=== PATIENT | female | born 1990 | race Caucasian/White ===

== ENCOUNTER 2016-12-23 08:57 | Emergency (ER) | payer MEDICAID, SELFPAY ==
[2016-12-23 08:58] VITALS: BMI 19.2
[2016-12-23 08:59] VITALS: BP 109/61; PULSE 55; RESP 19; TEMP 98.4; O2SAT 100
[2016-12-23] MEDS ORDERED: Sodium Chloride 0.9% 1,000 ML IV STA (09:22)
--- NOTE | 2016-12-23 09:25 | ED PDOC ---
Syncope/Near Syncope/Dizziness Time Seen by Provider: 12/23/16 09:11 Chief Complaint (Nursing): Syncope Chief Complaint (Provider): Syncope History Per: Patient History/Exam Limitations: no limitations Onset/Duration Of Symptoms: Mins (prior to arrival) Current Symptoms Are (Timing): Gone Now Additional Complaint(s): Candida Blanco is a 26 year old female with a previous medical history of kidney stones, who presents to the emergency department with a complaint of dizziness associated with nausea and sensation of room spins while walking down the stairs of the [facility]. Patient reports falling down the stairs 3 steps after symptom onset but being caught by a bystander. At the moment, she denies any headaches, dizziness, vomiting, abdominal pain, paresthetic sensation or weakness. She states that she had two prior episodes last week that lasted no more than 10 seconds each. PMD: none provided Past Medical History Reviewed: Historical Data, Nursing Documentation, Vital Signs Vital Signs: Last Vital Signs Temp 98.4 F 12/23/16 08:59 Pulse 55 L 12/23/16 08:59 Resp 19 12/23/16 08:59 BP 109/61 12/23/16 08:59 Pulse Ox 100 12/23/16 08:59 - Medical History PMH: Kidney Stones Denies: Chronic Kidney Disease - Surgical History Surgical History: Cholecystectomy, (x1) - Family History Family History: States: Unknown Family Hx - Social History Current smoker - smoking cessation education provided: No Alcohol: None Drugs: Denies - Home Medications Home Medications: Ambulatory Orders Medication Instructions Recorded Ursodiol [Actigall] 300 mg PO BID #0 cap 05/04/15 Ondansetron ODT [Zofran ODT] 4 mg PO Q8 PRN #12 odt 11/16/15 Doxylamine/Pyridoxine HCl (B6) 1 each PO QPM PRN #15 tablet. 12/23/16 [Eileen Xie 10-10 mg Tablet] Vit Calc,Iron,Folic 1 each PO DAILY #30 tablet 12/23/16 [ Vitamins] - Allergies Allergies/Adverse Reactions: Allergies Allergy/AdvReac Type Severity Reaction Status Date / Time No Known Allergies Allergy Verified 04/29/15 02:14 Review of Systems ROS Statement: Except As Marked, All Systems Reviewed And Found Negative Constitutional: Negative for: Fever, Chills, Weakness Cardiovascular: Positive for: Light Headedness Gastrointestinal: Positive for: Nausea. Negative for: Abdominal Pain Neurological: Positive for: Dizziness (dizziness associated with room spinning sensation). Negative for: Weakness (No paresthetic sensation), Headache Physical Exam - Reviewed Nursing Documentation Reviewed: Yes Vital Signs Reviewed: Yes - Physical Exam Appears: Positive for: Well, Non-toxic, No Acute Distress Head Exam: Positive for: ATRAUMATIC, NORMAL INSPECTION, NORMOCEPHALIC Skin: Positive for: Normal Color, Warm, Dry Eye Exam: Positive for: Normal appearance, EOMI, PERRL. Negative for: Nystagmus ENT: Positive for: Normal ENT Inspection Neck: Positive for: Normal, Painless ROM, Supple Cardiovascular/Chest: Positive for: Regular Rate, Rhythm Respiratory: Positive for: Normal Breath Sounds Gastrointestinal/Abdominal: Positive for: Normal Exam, Bowel Sounds, Soft. Negative for: Tenderness Back: Positive for: Normal Inspection Extremity: Positive for: Normal ROM Neurologic/Psych: Positive for: Alert, plastic press molder II-XII (intact), Oriented, Cerebellar Tests (good ). Negative for: Motor/Sensory Deficits - Laboratory Results Result Diagrams: 12/23/16 09:30 12/23/16 09:30 - ECG O2 Sat by Pulse Oximetry: 100 (RA) Pulse Ox Interpretation: Normal Medical Decision Making Medical Decision Making: Time: 9:21 Initial Impression: Vertigo Initial Plan: * CT Head w/o contrast * EKG * Labs * HCG Qualitative serum * Urine dipstick * Urine * Antivert 50mg PO * Normal saline 1,000 ml IV per 1,000 mls/hr * Zofran 4mg IV * Orthostatic BP * Urinalysis * Re-evaluation Time: 9:30 Urine sample confirmed that patient is . Orders of CT Head and Antivert are cancelled. Time: 9:44 Patient denies any dysuria, abdominal pain, or vaginal bleeding. LMP: 11/28/16 G2, P1 Scribe Attestation: Documented by Brianna Dunn, acting as a scribe for Ama Macedo MD. Provider Scribe Attestation: All medical record entries made by the Scribe were at my direction and personally dictated by me. I have reviewed the chart and agree that the record accurately reflects my personal performance of the history, physical exam, medical decision making, and the department course for this patient. I have also personally directed, reviewed, and agree with the discharge instructions and disposition. Disposition - Clinical Impression Clinical Impression: - Patient ED Disposition Is Patient to be Admitted: No - Disposition [facility] Disposition: Routine/Home Disposition Time: 12:35 Condition: IMPROVED Prescriptions: Doxylamine/Pyridoxine HCl (B6) [Eileen Xie 10-10 mg Tablet] 1 each PO QPM PRN # 15 tablet. PRN Reason: Nausea/Vomiting Vit Calc,Iron,Folic [ Vitamins] 1 each PO DAILY #30 tablet Instructions: (ED) Print Language: LATVIAN
[2016-12-23 09:47] LABS: BASO % 0.6 % (0.0-2.0); EOS # 0.1 K/uL (0.0-0.7); EOS % 1.8 % (0.0-4.0); HEMATOCRIT 37.3 % (34.0-47.0); LYMPH # 1.8 K/uL (1.0-4.3); LYMPH % 27.2 % (20.0-40.0); MEAN CORPUSCULAR HEMOGLOBIN 28.4 pg (27.0-31.0); MEAN CORPUSCULAR HGB CONC 32.7 g/dL (33.0-37.0); MEAN PLATELET VOLUME 8.3 fl (7.2-11.7); MONO # 0.3 K/uL (0.0-0.8); MONO % 5.1 % (0.0-10.0); NEUT # 4.3 K/uL (1.8-7.0); NEUT % 65.3 % (50.0-75.0); RED CELL DISTRIBUTION WIDTH 13.2 % (11.5-14.5); WHITE BLOOD COUNT 6.6 K/uL (4.8-10.8)
[2016-12-23 09:57] LABS: RBC URINE 4 /hpf (0-3); URINE BACTERIA OCC (<OCC); URINE BILIRUBIN NEGATIVE (NEGATIVE); URINE BLOOD NEGATIVE (NEGATIVE); URINE COLOR YELLOW (YELLOW); URINE GLUCOSE (UA) NEG (Normal); URINE KETONE NEGATIVE (NEGATIVE); URINE LEUKOCYTE ESTERASE NEG Leu/uL (Negative); URINE PROTEIN 100 mg/dL (NEGATIVE); URINE UROBILINOGEN 0.2-1.0 mg/dL (0.2-1.0); WBC URINE 1 /hpf (0-5)
[2016-12-23 10:18] LABS: ALB/GLOB RATIO 1.3 (1.0-2.1); ALKALINE PHOSPHATASE 50 U/L (38-126); ALT/SGPT 40 U/L (9-52); AST/SGOT 29 U/L (14-36); BILIRUBIN,TOTAL 0.3 mg/dl (0.2-1.3); BLOOD UREA NITROGEN 11 mg/dl (7-17); CALCIUM 8.8 mg/dL (8.4-10.2); CARBON DIOXIDE 22 mmol/L (22-30); CHLORIDE 104 mmol/L (98-107); GFR AFRICAN-AMERICAN > 60; GLUCOSE,RANDOM 90 mg/dL (65-105); POTASSIUM 3.9 MMOL/L (3.6-5.0); SODIUM 136 mmol/l (132-148); TOTAL PROTEIN 7.1 G/DL (6.3-8.2)
--- NOTE | 2016-12-23 12:03 | CARD ---
APPROVED REPORT EKG Measurement Heart [id number] <Conclusion> Sinus bradycardia Nonspecific T wave abnormality Abnormal ECG
--- NOTE | 2016-12-23 12:43 | US ---
PROCEDURE: OB Pelvic Ultrasound HISTORY: Nausea, dizziness COMPARISON: None available. FINDINGS: UTERUS: Gestational sac: Single intrauterine gestation. Heart rate: 146 bpm. age (Ultrasound estimated): 7 weeks 1 day +/- 0 weeks 4 days Lore-gestational hemorrhage: None. Date of delivery (Ultrasound estimated) : 08/10/2017 Uterus measures 11.8 x 4.5 x 6.7 cm. Normal in size and appearance. CERVIX: Long and closed. No cervical abnormality seen. RIGHT OVARY: Measures 2.6 x 1.3 x 2.2 cm. No mass lesion. Normal flow. LEFT OVARY: Measures 2.3 x 1.4 x 2.1 cm. No solid mass. Normal flow. FREE FLUID: None. OTHER FINDINGS: None. IMPRESSION: Single intrauterine live with ultrasound estimated gestational age of 7 weeks 1 day +/- 0 weeks 4 days. Estimated date of delivery by ultrasound is 08/10/2017.
== END 2016-12-23 13:41 | disposition home or self-care (01) ==
LOC: SUPCPDRO 08:57 → H.ER 08:57
DX: R42 Dizziness and giddiness (principal); Z33.1 Pregnant state, incidental

== ENCOUNTER 2017-08-03 07:44 | Inpatient (IN) | payer MEDICAID, SELFPAY ==
[2017-08-03 07:44] VITALS: BMI 28.2
[2017-08-03] MEDS ORDERED: Lactated Ringer's 1,000 ML IV SCH (07:45)
[2017-08-03] MEDS ORDERED: ceFAZolin 1 GM in Sodium Chloride 0.9% 100 ML IVPB ONE ×2 (07:46→09:00)
[2017-08-03] MEDS: Lactated Ringer's 1,000 ML IV SCH ×2 (08:00→09:00)
[2017-08-03] MEDS ORDERED: Oxytocin 30 UNITS in Sodium Chloride 0.9% 500 ML IM ONE ×2 (08:15→11:15)
[2017-08-03 08:23] LABS: BASO % 0.6 % (0.0-2.0); EOS % 0.6 % (0.0-4.0); HEMOGLOBIN 10.8 g/dL (12.0-16.0); LYMPH # 1.8 K/uL (1.0-4.3); LYMPH % 22.9 % (20.0-40.0); MEAN CELL VOLUME 84.7 fl (81.0-99.0); MEAN CORPUSCULAR HEMOGLOBIN 28.3 pg (27.0-31.0); MEAN CORPUSCULAR HGB CONC 33.5 g/dL (33.0-37.0); MONO # 0.4 K/uL (0.0-0.8); MONO % 4.8 % (0.0-10.0); NEUT # 5.7 K/uL (1.8-7.0); NEUT % 71.1 % (50.0-75.0); NRBC % 0.1 % (0.0-0.0); RBC 3.81 Mil/uL (3.80-5.20); RED CELL DISTRIBUTION WIDTH 15.7 % (11.5-14.5)
[2017-08-03] MEDS ORDERED: Morphine 1 mg/ml preservative-free Inj(Duramorph) ONE (09:18)
[2017-08-03] MEDS ORDERED: ePHEDrine 50 mg/ml Inj ONE (09:18)
[2017-08-03] MEDS ORDERED: Phenylephrine 10 mg/ml Inj ONE (09:19)
[2017-08-03] MEDS ORDERED: Cellulose Hemostat 2X3 Sheet ONE (10:25)
[2017-08-03] MEDS ORDERED: DiphenhydrAMINE 50 mg/ml Inj IVP PRN (10:45)
[2017-08-03] MEDS ORDERED: DiphenhydrAMINE 50 mg/ml Inj ONE (10:50)
[2017-08-03] MEDS ORDERED: Oxytocin 30 UNITS in Sodium Chloride 0.9% 500 ML IV ONE (11:30)
[2017-08-03] MEDS: Simethicone 80 mg Chewtab PO SCH (22:30)
[2017-08-04] MEDS: Simethicone 80 mg Chewtab PO SCH ×4 (05:00→21:42)
[2017-08-04 06:37] LABS: HEMOGLOBIN 9.6 g/dL (12.0-16.0); MEAN CORPUSCULAR HGB CONC 32.9 g/dL (33.0-37.0); RBC 3.42 Mil/uL (3.80-5.20); RED CELL DISTRIBUTION WIDTH 16.3 % (11.5-14.5); WHITE BLOOD COUNT 9.8 K/uL (4.8-10.8)
[2017-08-04] MEDS: Oxycodone/Acetaminophen 5/325 mg Tab PO PRN ×2 (08:12→15:55)
--- NOTE | 2017-08-04 09:01 | OBADHP ---
Datetime: 08/03/2017 08:05 Admit Comment, IP Provider: 26yo ega 39.0 confirmed with US on 12/23/2016 presents for repeat c /s. Pt reports feeling comfortable: +: movement denies: contractions, vb/lof/cp/sob/n/v/dysuria pnc: Dr. 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 case dw Dr. Benny claire md [email or web address] Pelvic Type - PN: Adequate Extremities - PN: Normal Abdomen - PN: Normal Back - PN: Normal Breast - PN: Normal Lungs - PN: Not Done Heart - PN: Normal Thyroid - PN: Not Done Neurologic - PN: Normal HEENT - PN: Normal General - PN: Normal FHR - Baseline A Provider: 130 Vital Signs Provider: Reviewed; Within Normal Limits IP Chief Complaint: Scheduled Section NICHD Variability Prov Fetus A: Moderate 6-25bpm NICHD Accel Fetus A IP Provider: [id number] FHR Category Provider Fetus A: Category I NICHD Decel Fetus A IP Provider: None Genitourinary Exam: Normal DTRs - PN: Not Done EGA AdmitDate IP: 39.0 IP Adm Impression: Term, intrauterine IP Admit Plan: Admit to unit; Initiate Section protocol
--- NOTE | 2017-08-04 09:10 | OBDS ---
DELIVERY PERSONNEL Delivery Doctor: Rober Zapata MD Scrub Nurse: Amanda Haddad Gluer And Slicer Hand: Margareth Osuna RN Anesthesiologist: Constance Regalado MD Resident: Dr. Martínez MATERNAL INFORMATION Delivery Anesthesia: Spinal Medications in Delivery: surgicel, Pitocin 30 units Estimated Blood Loss (ml): 800 Placenta Cultured: No Maternal Complications: None RN Comments: see provider notes Provider Comments: Refer to dictation. LABOR SUMMARY EDC: 08/10/2017 00:00 No. Babies in Womb: 1 Attempted: No Labor Anesthesia: None LABOR INFORMATION Reason for Induction: Not Applicable Oxytocin: N/A Group B Beta Strep: Negative Steroids Given: None Reason Steroids Not Administered: Not Applicable MEMBRANES Membranes Rupture Method: Artificial Rupture of Membranes: 08/03/2017 10:10 Length of Rupture (hrs): 0.02 Amniotic Fluid Color: Clear Amniotic Fluid Amount: Moderate Amniotic Fluid Odor: Normal STAGES OF LABOR Stage 3 hrs: 0 Stage 3 min: 1 CSECTION DELIVERY Primary Indication: Repeat Elective CSection Urgency: Elective CSection Incidence: Repeat Labor: No Labor Elective: Elective CSection Incision: Lower Uterine Transverse BABY A INFORMATION Infant Delivery Date/Time: 08/03/2017 10:11 Method of Delivery: Born in Route : No : N/A Forceps: N/A Vacuum Extraction: N/A Shoulder Dystocia : No SHOULDER DYSTOCIA BABY A Delivery Date/Time: 08/03/2017 10:11 PRESENTATION/POSITION BABY A Presentation: Cephalic Cephalic Presentation: Vertex Breech Presentation: N/A PLACENTA INFORMATION BABY A Placenta Delivery Time : 08/03/2017 10:12 Placenta Method of Delivery: Manual Removal Placenta Status: Delivered SCORES BABY A Heart Rate 1 min: >100 bpm Resp Effort 1 min: Good Cry Reflex Irritability 1 min: Cough or Sneeze or Pulls Away Muscle Tone 1 min: Active Motion Color 1 min: Blue/Pale Resuscitation Effort 1 min: Tactile Stimulation; Oxygen SCORE 1 MIN: 8 Heart Rate 5 min: >100 bpm Resp Effort 5 min: Good Cry Reflex Irritability 5 min: Cough or Sneeze or Pulls Away Muscle Tone 5 min: Active Motion Color 5 min: Body [place], Extremities Blue Resuscitation Effort 5 min: Tactile Stimulation; Oxygen SCORE 5 MIN: 9 INFANT INFORMATION BABY A Gestational Age at Delivery: 39.0 Gestational Status: Term Outcome : Liveborn Condition : Stable Sex: Male IDENTIFICATION/MEDS BABY A ID Band Number: [id number] ID Band Location: Left Leg; Left Arm Vitamin K Given : Not Given Erythromycin Given: Not Given WEIGHT/LENGTH BABY A Infant Birthweight (gms): 3740 Infant Weight (lb): 8 Weight (oz): 4 CORD INFORMATION BABY A No. Cord Vessels: 3 Nuchal Cord : N/A Cord Blood Taken: No Suction: None ASSESSMENT BABY A Infant Complications: None Physical Findings at Delivery: Within Normal Limits Infant Respirations: Grunting Computer Systems Security Administrator/ALS Called : No Infant Care By: Dr. Chavez Transferred To: Nursery
--- NOTE | 2017-08-04 10:10 | OBPPN ---
Datetime: 08/04/2017 06:10 PP Pain Prov: Within normal limits PP Nausea Prov: Denies PP Flatus Prov: Yes PP BM Prov: No PP Breasts Prov: Not Done PP Heart Prov: Normal PP Lungs Prov: Normal PP Abdomen/Uterus Prov: Normal PP Lochia Prov: Normal PP Vulva/Perineum Prov: Not Done PP CVA Tenderness Prov: Not Done PP Extremities Prov: Normal PP C/S Incision Prov: Normal PP Impression Prov: Normal progression PP Plan Prov: Continue present management PP Progress Note Prov: 26 yo s/p . Pt. is seen and examined at bedside this morning . No overnight events. Pt reports mild abdominal pain, but well controlled with pain meds. Robins to b e d/c. Dressing to be removed. Advised to advance diet as tolerated. Pumping w/o difficulty. Lochia i s similar to menses volume. No BM but passing gas per rectum. Denies fever/chills, diarrhea, nausea/v omiting, chest pain, dyspnea, and dizziness. VS: stable Gen: NAD Cardio: s1s2, no m/r/g Resp: clear breath sounds b/l Abdomen: BS+, tenderness to palpation. Dressing clean, intact. Uterus is firm and at the level of the umbilicus. Ext: No edema, calves nontender Neuro/Psych: AAOx3, no grossly focal deficit, preserved affect and mood. A/P: 26 yo s/p . Pt remains afebrile, tolerating pain with medication, doing well on POD 1. OOB with caution SCDs for DVT prophylaxis, encouraged ambulating Percocet 5/325mg and Ibuprofen 600mg for pain. Colace 100mg PO BID for constipation Encourage . PP CBC: pending. Tdap before d/c Anticipated d/c: 08/06/17 YBecerra PGY Addendum by Dr. Salgado: Patient evaluated independently and I agree with the above. Patient is POD #1, continue orders, patient doing well IP PP Procedures: None Vital Signs Provider PP: Reviewed; Within Normal Limits
--- NOTE | 2017-08-04 15:31 | OP ---
PROCEDURE DATE: 08/03/2017 PREOPERATIVE DIAGNOSIS: Elective repeat section at 39 weeks' gestational age. POSTOPERATIVE DIAGNOSIS: Elective repeat section at 39 weeks' gestational age. OPERATION PERFORMED: Repeat low-flap transverse section via Pfannenstiel incision. OPERATIVE FINDINGS: Viable infant with Apgars of 9 and 9 at 1 and 5 minutes respectively. Normal uterus, normal tubes and ovaries bilaterally. Moderate amount of abdominal pelvic adhesions. SURGEON: Kin Zapata MD. TYPE OF ANESTHESIA: Spinal. ANESTHESIOLOGIST: Mika Regalado MD. ESTIMATED BLOOD LOSS: 800 mL. FLUIDS: 1100 mL Lactated Ringer's. URINE OUTPUT: 200 mL of clear urine at the end of procedure. COMPLICATIONS: None. DESCRIPTION OF PROCEDURE: The patient was taken to the operating room where spinal anesthesia was found to be adequate. The patient was prepped and draped in a normal sterile fashion in the dorsal supine position with a leftward tilt. A Pfannenstiel skin incision was made with a scalpel. This was carried down through to the underlying layer of fascia with the scalpel. Midline defect was made in the fascial layer with a scalpel. The fascial incision was then extended bilaterally sharply with curved Quiroz scissors. The fascial layer was from the underlying rectus muscles both bluntly and sharply with curved Quiroz scissors. The rectus muscles were at the midline. The peritoneum was then identified, tented up with the Lana clamps x2, entered sharply with Metzenbaum scissors. This peritoneal incision was then extended superiorly and inferiorly with good visualization of the urinary bladder. Bladder blade was inserted in the abdomen. The vesicouterine peritoneum was then identified, tented up with Lana clamps x2, entered sharply with Metzenbaum scissors. This peritoneal incision was then extended superiorly and inferiorly with good visualization of the urinary bladder. The bladder flap was created digitally. The Marcela retractors were placed over the urinary bladder. The uterus was incised with a scalpel. The uterine incision was extended bilaterally bluntly. The infant's head was delivered atraumatically. Nose and mouth were suctioned with bulb suction. The remainder of the was delivered without complication. The cord was clamped and cut. The was handed off to waiting pediatricians. The cord blood was collected. The placenta was removed manually. The uterus was cleared of all clots and debris. The uterine incision was repaired with 0 Vicryl in a running, locked fashion. A second layer of the same suture was used to imbricate the first and to obtain excellent hemostasis. Reinspection of the uterine incision proved excellent hemostasis. The abdomen and pelvis were irrigated with copious amounts of warm normal saline. Reinspection of the uterine incision proved hemostasis. All instruments were removed from the patient. The peritoneal layer was closed with a running stitch of 2-0 chromic. The rectus muscles were reapproximated in the midline with a running stitch of 2-0 chromic. The fascial layer was closed with a running stitch of 0 Vicryl. Subcutaneous tissue was closed with a running stitch of 3-0 plain. The skin was closed with a subcutaneous stitch of 3-0 Vicryl. The patient tolerated the procedure well. All sponge count, lap count and needle counts were correct x2. The patient was given 2 g of Ancef just prior to the beginning of the procedure. The patient tolerated the procedure well. There were no complications. The patient was taken to the recovery room awake and in stable condition. Kin Zapata MD
[2017-08-05] MEDS: Oxycodone/Acetaminophen 5/325 mg Tab PO PRN (02:27)
--- NOTE | 2017-08-05 12:21 | OBPPN ---
Datetime: 08/05/2017 06:24 PP Pain Prov: Within normal limits PP Nausea Prov: Denies PP Flatus Prov: Yes PP BM Prov: No PP Breasts Prov: Not Done PP Heart Prov: Normal PP Lungs Prov: Normal PP Abdomen/Uterus Prov: Normal PP Lochia Prov: Normal PP Vulva/Perineum Prov: Not Done PP CVA Tenderness Prov: Not Done PP Extremities Prov: Normal PP C/S Incision Prov: Normal PP Progress Prov: Normal PP Comments Phys Exam Prov: Pfannenstiel incision: Clean dry and intact no exudate no erythema no in duration PP Impression Prov: Normal progression PP Plan Prov: Continue present management PP Progress Note Prov: 26 yo s/p . Pt. is seen and examined at bedside this morning . No overnight events. Pt reports mild abdominal pain, but well controlled with pain meds. Robins d/c. Dressing removed. Tolerating PO diet well. Pumping w/o difficulty. Lochia is similar to menses volum e. No BM but passing gas per rectum. Denies fever/chills, diarrhea, nausea/vomiting, chest pain, dysp kate, and dizziness. VS: stable Cardio: s1s2, no m/r/g Resp: clear breath sounds b/l Abdomen: BS+, tenderness to palpation. Incision looks clean, intact no erythema, no exudates or de hiscence. Uterus is firm and at the level of the umbilicus. Ext: No edema, calves nontender A/P: 26 yo s/p . Pt remains afebrile, tolerating pain with medication, doing well on POD 2. OOB with caution SCDs for DVT prophylaxis, encouraged ambulating Percocet 5/325mg and Ibuprofen 600mg for pain. Colace 100mg PO BID for constipation Iron 325mg PO daily for anemia. Encourage . PP CBC: 9.6/29.0 Tdap before d/c Anticipated d/c: 08/06/17 YBecerra PGY1 OB attending addendum: Patient seen and examined by me. Patient states she had a bowel movement this morning. She complai ns of intermittent dizziness associated with getting out of bed and ambulation. No other complaints O: 08/04 hemoglobin 9.6 Afebrile but afebrile vital signs stable Impression postop day #2. Hemoglobin 9.6 and intermittent lightheadedness plan ECC Wounds care and hygiene reviewed with patient IP PP Procedures: None Vital Signs Provider PP: Reviewed; Within Normal Limits
[2017-08-05 12:32] LABS: HEMOGLOBIN 8.7 g/dL (12.0-16.0); MEAN CELL VOLUME 87.4 fl (81.0-99.0); MEAN CORPUSCULAR HEMOGLOBIN 28.4 pg (27.0-31.0); MEAN CORPUSCULAR HGB CONC 32.5 g/dL (33.0-37.0); RBC 3.07 Mil/uL (3.80-5.20); RED CELL DISTRIBUTION WIDTH 15.9 % (11.5-14.5); WHITE BLOOD COUNT 10.6 K/uL (4.8-10.8)
[2017-08-05] MEDS: Simethicone 80 mg Chewtab PO SCH ×3 (13:24→22:00)
[2017-08-06] MEDS: Simethicone 80 mg Chewtab PO SCH ×4 (04:00→10:12)
[2017-08-06] MEDS ORDERED: Oxytocin 30 UNITS in Sodium Chloride 0.9% 500 ML IV ONE (08:08)
--- NOTE | 2017-08-06 11:06 | OBDCSUM ---
Datetime: 08/06/2017 08:36 Discharged to, Provider: Home Follow up at, Provider: [facility] Disch Instr Activity: Normal activity Disch Instr Diet: Regular Discharge Instructions, Provider: Routine instructions given Discharge Diagnosis, Provider: Term Delivered Discharge Time: 08/06/2017 11:00 Follow up in weeks, Provider: Wound check Appt given to patient, F/U PP and NB appt Disch Referrals: None Contraception discussed, Prov: Yes Disch Activity Restrictions: No sexual activity; Nothing in vagina - [place], tampons, douche Discharge Comment, Provider: POD#3 26 yo s/p . Patient is seen and examined this morning, ambulating in hallway w/o any difficulty. Patient admits mild to moderate pain but well controlled on medication. Patient is br eastfeeding. denies any issue with PO intake, voiding or BM. Had a BM today as per patient. Lochia is similar to menses volume. Denies fever/chills, diarrhea, nausea/vomiting, chest pain, dyspnea, or di zziness. Baby is doing well as per patient VS: stable Cardio: s1s2, no m/r/g Resp: clear breath sounds b/l Abdomen: BS+, tenderness to palpation. Incision looks clean, intact no erythema, no exudates or de hiscence. Uterus is firm and at the level of the umbilicus. Ext: No edema, calves nontender A/P: 26 yo s/p . Pt remains afebrile, tolerating pain with medication, doing well on POD 3 -Encourage ambulating and breast feeding -Percocet 5/325mg, and Ibuprofen 600mg for pain, Rx given -Iron for anemia, Rx given -Nothing per Vagina, no heavy lifting, avoid stairs for few days -If excessive bleeding or fever without relief from Tylenol go to ED -Follow up at [facility] with in one week -Follow up wound check, Appt given and follow up for PP visit in 4 to 6 weeks -Discharge home Case discussed with Dr. Richard --- Bev Ramos, PGY-1
--- NOTE | 2017-08-06 11:06 | OBPPN ---
Datetime: 08/06/2017 11:04 PP Pain Prov: Within normal limits PP Nausea Prov: Denies PP Flatus Prov: Yes PP Breasts Prov: Normal PP Heart Prov: Normal PP Lungs Prov: Normal PP Abdomen/Uterus Prov: Normal PP Lochia Prov: Normal PP Vulva/Perineum Prov: Normal PP CVA Tenderness Prov: Normal PP Extremities Prov: Normal PP Comments Phys Exam Prov: Fundus firm under umbilicus Incision clean/dry/intact PP Impression Prov: Normal progression PP Plan Prov: Continue present management PP Progress Note Prov: Patient denies CP, no SOB, no N/V, tolerating PO diet, ambulating/voiding wel l, mild lochia, abdominal pain tolerable with meds A/P POD#3 1. discharge home 2. dishcarge instructions reviewed IP PP Procedures: None Vital Signs Provider PP: Reviewed; Within Normal Limits
[2017-08-06 16:06] VITALS: BP 133/77; PULSE 84; RESP 20; TEMP 99.1; O2SAT 98
== END 2017-08-06 11:55 | disposition home or self-care (01) | DRG 766 ==
LOC: H.L&D 07:44 → H.OB/GYN 13:45
PROVIDERS: ADMIT Obstetrics & Gynecology; ATTEND Obstetrics & Gynecology
PROC: 10D00Z1 Extraction of Products of Conception, Low, Open Approach (ICD-10-PCS; principal; 2017-08-03)
PROC: 4A1HXCZ Monitoring of Products of Conception, Cardiac Rate, External Approach (ICD-10-PCS; 2017-08-03)
DX: O34.219 Maternal care for unspecified type scar from previous cesarean delivery (principal); K59.00 Constipation, unspecified; Z37.0 Single live birth; N85.8 Other specified noninflammatory disorders of uterus; Z3A.39 39 weeks gestation of pregnancy; O90.81 Anemia of the puerperium